=== PATIENT | male | born 1935 | race African-American/Black ===

== ENCOUNTER 2017-10-18 14:12 | Emergency (ER) | payer MEDICARE, OTHER ==
[~2017-10-18] VITALS: Ht 177.8 cm; Wt 100.0 kg
[~2017-10-18 14:12] MED LIST: ASPI-556 PO; BENA40TA3 PO; DOCU100C33 PO; DONE10TA36 PO; DOXA4TAB3 PO; IBUP-2071 PO; MULT-1192; NIFE30TA98 PO; PSEU15LI PO; SENN15TA35 PO
[2017-10-18 16:29] LABS: BASOPHILS % (AUTO) 0.5 % (0.0-2.0); HEMATOCRIT 37.8 % (41-53); LYMPHOCYTES # (AUTO) 0.9 K/uL (1.0-4.8); LYMPHOCYTES % (AUTO) 14.9 % (22.0-44.0); MEAN CORPUSCULAR HEMOGLOBIN 32.5 pg (26.0-34.0); MEAN CORPUSCULAR HGB CONC 34.5 G/dL (31.0-37.0); MEAN CORPUSCULAR VOLUME 94 fL (80-100); MONOCYTES # (AUTO) 0.4 K/uL (0.1-1.0); MONOCYTES % (AUTO) 6.1 % (2.0-9.0); NEUTROPHILS # (AUTO) 4.6 K/uL (1.8-7.7); NEUTROPHILS % (AUTO) 77.5 % (40.0-70.0); PLATELET COUNT (AUTO) 127 K/uL (150-450); RED BLOOD CELL COUNT(AUTO) 4.02 MIL/uL (4.50-5.90); RED CELL DISTRIBUTION WIDTH 14.8 % (11.5-14.5)
[2017-10-18 16:38] LABS: ANION GAP 6 mmol/L (8-16); CALCIUM, TOTAL 8.6 mg/dL (8.8-10.5); CARBON DIOXIDE 29 mmol/L (22-29); CHLORIDE 110 mmol/L (98-107); CREATININE 1.04 mg/dL (0.60-1.30); GLUCOSE,RANDOM 92 mg/dL (70-110); POTASSIUM 3.7 mmol/L (3.5-5.1); SODIUM SERUM 145 mmol/L (136-145); UREA NITROGEN, BLOOD 10 mg/dL (7-18)
[2017-10-18 16:39] LABS: GLOMERULAR FILTR. RATE CALC > 60 mL/min (>60)
[2017-10-18 17:04] LABS: ALANINE AMINOTRANSFERASE 16 U/L (12-78); ALBUMIN 3.1 g/dL (3.4-5.0); ALKALINE PHOSPHATASE 64 U/L (46-116); ASPARTATE AMINOTRANSFERASE 15 U/L (15-37); BILIRUBIN,TOTAL 0.6 mg/dL (0.1-1.0); CREATINE KINASE MB 1.4 ng/mL (0-5); CREATINE KINASE, TOTAL 221 U/L (39-308); TOTAL PROTEIN, SERUM 6.5 g/dL (6.4-8.2)
[2017-10-18] MEDS ORDERED: SODIUM CHLORIDE 0.9% 100 ML ONE (17:28)
[2017-10-18] MEDS ORDERED: IOVERSOL 320 MG/ML 100 ML VIAL ONE (17:28)
[2017-10-18] MEDS ORDERED: SODIUM CHLORIDE 0.9% 1,000 ML IV ONE (17:30)
[2017-10-18] MEDS ORDERED: LORazepam 2 MG/ML VIAL IVP ONE ×2 (18:00→22:00)
[2017-10-18 19:10] LABS: B-TYPE NATRIURETIC PEPTIDE 111 pg/mL (0-100)
[2017-10-18] MEDS ORDERED: ENOXAPARIN SODIUM 100 MG/ML PF SYRINGE SQ SCH (20:30)
[2017-10-18 21:02] LABS: PROTHROMBIN TIME 10.9 SEC (9.4-11.6)
[2017-10-18] MEDS ORDERED: ENOXAPARIN SODIUM 100 MG/ML PF SYRINGE SQ ONE (21:30)
[2017-10-18 23:51] VITALS: BP 147/89
[2017-10-19] MEDS ORDERED: ENOXAPARIN SODIUM 100 MG/ML PF SYRINGE SQ SCH (09:00)
== END 2017-10-19 | disposition short-term general hospital (02) ==
LOC: EMS 14:14
DX: I71.2 Thoracic aortic aneurysm, without rupture (principal); I26.99 Other pulmonary embolism without acute cor pulmonale; R00.1 Bradycardia, unspecified; F03.90 Unspecified dementia, unspecified severity, without behavioral disturbance, psychotic disturbance, mood disturbance, and anxiety; I10 Essential (primary) hypertension; R79.1 Abnormal coagulation profile; Z79.82 Long term (current) use of aspirin; Z79.899 Other long term (current) drug therapy; Z98.890 Other specified postprocedural states; W18.39XA Other fall on same level, initial encounter; Y93.01 Activity, walking, marching and hiking; Y92.89 Other specified places as the place of occurrence of the external cause; Y99.8 Other external cause status
CPT/HCPCS: 36415; 71045; 71260; 73521; 80053; 82550; 82553; 83735; 83880; 84484; 85025; 85610; 85730; 93005; 93970; 96361; 96372; 96374; 96376; 99291; J1650; J2060; J7030; J7050; Q9967